=== PATIENT | female | born 1985 | race Caucasian/White ===

== ENCOUNTER → 2017-07-14 | Outpatient (CLI) | payer BC ==
[~2017-07-14] MED LIST: MACROBID100 MG PO; MOTRIN 600600 MG/TAB PO; NO HOME MEDICATIONS; PERCOCET 325 MG1 TA2 PO; PRENATAL VITAMI1 TA5 PO; ZANTAC 150MG T150 MG PO
== END ==
LOC: MC.RAD 08:50
DX: N63.11 Unspecified lump in the right breast, upper outer quadrant (principal)